=== PATIENT | female | born 1960 ===

== ENCOUNTER 2023-11-20 10:00 | Day surgery (SDC) | payer OTHER, BC ==
[2023-11-20] MEDS ORDERED: MOXIFLOXACIN HCL 0.5% DROPS 3 ML BTL ONE (10:19)
[2023-11-20] MEDS ORDERED: BALANCED SALT IRRIG SOLN COMB2 15 ML IRRIG.SOLN ONE (10:19)
[2023-11-20] MEDS ORDERED: LACTATED RINGERS 1,000 ML BAG ONE (10:19)
[2023-11-20] MEDS ORDERED: TIMOLOL 0.5% OPHTH DROPS 5 ML BTL ONE (10:19)
[2023-11-20] MEDS ORDERED: BALANCED SALT IRRIG SOLN COMB2 500 ML ONE (10:19)
[2023-11-20] MEDS ORDERED: CYCLOPENTOLATE 1% OPHTH SOLN 2 ML BTL ONE (10:19)
[2023-11-20] MEDS ORDERED: PHENYLEPHRINE 2.5% OPHTH DRP 2ML ONE (10:19)
[2023-11-20] MEDS ORDERED: EPINEPHrine (PF) 1 MG/ML AMP ONE (10:19)
--- NOTE | 2023-11-29 15:54 | OP ---
OPERATIVE REPORT DATE OF SERVICE : PREOPERATIVE DIAGNOSIS: Nuclear sclerosis, right eye. POSTOPERATIVE DIAGNOSIS: Nuclear sclerosis, right eye. OPERATION: Phacoemulsification of cataract and interocular lens implant, right eye. ESTIMATED BLOOD LOSS: Zero. SPECIMEN TAKEN: None. NARRATIVE: After obtaining the appropriate consent, the patient was brought to the operating room where the patient was placed under cardiac monitoring and prepped and draped in the usual sterile manner. At the 11 o'clock position, a 15-degree super sharp blade was used to create a paracentesis followed by instillation of 1% Xylocaine MPF 50:50 mix with BSS into the anterior chamber. This was followed by DuoVisc viscoelastic to stabilize the anterior chamber. At the 9 o'clock position a self-sealing corneal flap incision was created using 2.8 mm suzi keratome. A cystotome was used to initiate a continuous tear capsulorrhexis which was completed with the Utrata forceps. A Binkhorst cannula was used to hydrodissect the lens nucleus followed by hydrodelineation. Phacoemulsification of the lens was performed utilizing phacochop in 22.68 seconds at 13.5 % power. The remaining cortical material was removed using the irrigation aspiration mode followed by additional 1% Xylocaine MPF into the anterior chamber followed by viscoelastic to stabilize the capsular bag. A [employer] MX 60E 20.0 diopter posterior chamber lens was placed into the capsular bag without difficulty. The remaining viscoelastic material was removed from the anterior chamber with the irrigation/aspiration. Balanced salt solution was used to normalize the intraocular pressure. The incision was checked for watertight integrity. The patient then received 2 drops of 0.5% timolol followed by 2 drops Vigamox, was lightly patched and shielded in the usual manner. There were no complications from the procedure. The patient tolerated the procedure well and was returned to recovery in good condition. MMODL / IJN: [id number] /
[2023-12-21] MEDS ORDERED: fentaNYL (PF) 50 MCG/ML 2 ML AMP ONE (10:36)
[2023-12-21] MEDS ORDERED: MIDAZOLAM 2 MG/2 ML VIAL ONE (10:36)
== END 2023-11-20 11:40 ==
LOC: OR 10:00
PROVIDERS: ATTEND Ophthalmology
DX: H25.11 Age-related nuclear cataract, right eye (principal); H25.091 Other age-related incipient cataract, right eye; Z98.890 Other specified postprocedural states

== ENCOUNTER 2023-12-04 07:59 | Day surgery (SDC) | payer OTHER, BC ==
[~2023-12-04 07:59] MED LIST: LIDOCAINE 1% (10MG/ML) FOR IV START INTRADERMA PRN; TETRACAINE 0.5% OPHTH (PF) DROPS 4 ML BTL OP PRN
[2023-12-04 08:29] VITALS: TEMP 98.3
[2023-12-04] MEDS: CYCLOPENTOLATE 1% OPHTH SOLN 2 ML BTL OP PRN (08:33)
[2023-12-04] MEDS: PHENYLEPHRINE 2.5% OPHTH DRP 2ML OP PRN (08:36)
[2023-12-04] MEDS ORDERED: fentaNYL (PF) 50 MCG/ML 2 ML AMP ONE (08:56)
[2023-12-04] MEDS ORDERED: MIDAZOLAM 2 MG/2 ML VIAL ONE (08:56)
[2023-12-04] MEDS: LACTATED RINGERS 1,000 ML IV SCH (08:56)
[2023-12-04] MEDS: IV FLUID CONTINUATION 1,000 ML IV ONE (08:57)
[2023-12-04] MEDS: EPINEPHrine (PF) 0.3 ML in BALANCED SALT IRRIG SOLN COMB2 500 ML IRRIGATION ONE (09:11)
[2023-12-04] MEDS: BALANCED SALT IRRIG SOLN COMB2 15 ML IRRIG.SOLN INTRAOCULA ONE (09:15)
[2023-12-04] MEDS: LIDOCAINE 1% (PF) 10MG/ML VIAL MISCELLANE ONE (09:16)
[2023-12-04] MEDS: DUOVISC KIT (GREEN BOX) INTRAOCULA ONE (09:16)
[2023-12-04] MEDS: MOXIFLOXACIN HCL 0.5% DROPS 3 ML BTL OP PRN (09:16)
[2023-12-04] MEDS: TIMOLOL 0.5% OPHTH DROPS 5 ML BTL OP PRN (09:16)
--- NOTE | 2023-12-04 09:31 | P.OP ---
Date of Procedure: 12/04/23 Preoperative Diagnosis: NS Postoperative Diagnosis: same Procedure(s) Performed: PIOL, OS Implants: MX60E 19.50 Anesthesia: MAC Surgeon: Van Bernstein Pathology: none sent Condition: stable Disposition: same day Indications for Procedure: blurry vision Operative Findings: no complications
[2023-12-04 09:58] VITALS: BP 100/61; PULSE 61; RESP 16
--- NOTE | 2023-12-04 20:48 | OP ---
OPERATIVE REPORT DATE OF SERVICE : 12/04/2023 PREOPERATIVE DIAGNOSIS: Nuclear sclerosis, left eye. POSTOPERATIVE DIAGNOSIS: Nuclear sclerosis, left eye. OPERATION: Phacoemulsification of cataract and interocular lens implant, left eye. ESTIMATED BLOOD LOSS: Zero. SPECIMEN TAKEN: None. NARRATIVE: After obtaining the appropriate consent, the patient was brought to the operating room where the patient was placed under cardiac monitoring and prepped and draped in the usual sterile manner. At the 5 o'clock position, a 15-degree super sharp blade was used to create a paracentesis followed by instillation of 1% Xylocaine MPF 50:50 mix with BSS into the anterior chamber. This was followed by DuoVisc viscoelastic to stabilize the anterior chamber. At the 3 o'clock position a self-sealing corneal flap incision was created using 2.8 mm suzi keratome. A cystotome was used to initiate a continuous tear capsulorrhexis which was completed with the Utrata forceps. A Binkhorst cannula was used to hydrodissect the lens nucleus followed by hydrodelineation. Phacoemulsification of the lens was performed utilizing phacochop in 29.3 seconds at 15.8% power. The remaining cortical material was removed using the irrigation aspiration mode followed by additional 1% Xylocaine MPF into the anterior chamber followed by viscoelastic to stabilize the capsular bag. A [employer] MX60E 19.5 diopters posterior chamber lens was placed into the capsular bag without difficulty. The remaining viscoelastic material was removed from the anterior chamber with the irrigation/aspiration. Balanced salt solution was used to normalize the intraocular pressure. The incision was checked for watertight integrity. The patient then received 2 drops of 0.5% timolol followed by 2 drops Vigamox, was lightly patched and shielded in the usual manner. There were no complications from the procedure. The patient tolerated the procedure well and was returned to recovery in good condition. MMODL / IJN: [id number] /
== END 2023-12-04 10:16 | disposition home or self-care (01) ==
LOC: OR 07:59
PROVIDERS: ATTEND Ophthalmology
DX: H25.12 Age-related nuclear cataract, left eye